=== PATIENT | male | born 1985 | race Caucasian/White ===

== ENCOUNTER 2021-07-18 15:06 | Emergency (ER) | payer OTHER ==
[2021-07-18] MEDS ORDERED: Ketorolac Tromethamine 30 MG/ML VIAL ONE (17:39)
[2021-07-18] MEDS ORDERED: traMADol HCl 50 MG TAB ONE (17:40)
== END 2021-07-18 17:40 | disposition home or self-care (01) ==
LOC: ERS 15:06
DX: G89.29 Other chronic pain (principal); M54.50 Low back pain, unspecified; F17.210 Nicotine dependence, cigarettes, uncomplicated
CPT/HCPCS: 96372; 99283; J1885

== ENCOUNTER 2022-10-31 13:53 | Outpatient (CLI) | payer OTHER | END 2022-10-31 13:54 | disposition home or self-care (01) | LOC: TBSIIMAG 13:53 | PROVIDERS: ATTEND Surgery | DX: M51.26 Other intervertebral disc displacement, lumbar region (principal); M47.816 Spondylosis without myelopathy or radiculopathy, lumbar region | CPT/HCPCS: 72120; 72148 ==